=== PATIENT | female | born 1950 | race Caucasian/White ===

== ENCOUNTER 2022-05-12 05:01 | Observation (INO) ==
--- NOTE | 2022-04-24 15:22 | PAT Medication Instructions ---
Medication Instructions Date of Service April 24, 2022 Home Medications acetaminophen 500 mg tablet 500 mg PO QID PRN atorvastatin 40 mg tablet 40 mg PO QAM hydrochlorothiazide 25 mg tablet 25 mg PO QAM lansoprazole 30 mg capsule,delayed release 30 mg PO QAM levothyroxine 88 mcg tablet 88 mcg PO QAM magnesium oxide 250 mg PO QAM meloxicam 15 mg tablet 15 mg PO QAM xyzpfjyzysqd-amtxetxq-hfrnvj tablet 1 tab PO QAM potassium chloride 10 mEq tablet,extended release 10 meq PO BID sumatriptan succinate 100 mg tablet 100 mg PO UD PRN Continue as directed sumatriptan succinate 100 mg tablet 100 mg PO UD PRN(if needed) ASK your surgeon for instructions meloxicam 15 mg tablet 15 mg PO QAM DO NOT take the morning of surgery hydrochlorothiazide 25 mg tablet 25 mg PO QAM magnesium oxide 250 mg PO QAM kkaaihbaxvye-qcsxxlqj-ycmzlc tablet 1 tab PO QAM potassium chloride 10 mEq tablet,extended release 10 meq PO BID Take morning of surgery With a small sip of water, OTHERWISE NOTHING TO EAT OR DRINK AFTER MIDNIGHT: acetaminophen 500 mg tablet 500 mg PO QID PRN(if needed) atorvastatin 40 mg tablet 40 mg PO QAM lansoprazole 30 mg capsule,delayed release 30 mg PO QAM levothyroxine 88 mcg tablet 88 mcg PO QAM Take evening before surgery acetaminophen 500 mg tablet 500 mg PO QID PRN(if needed) potassium chloride 10 mEq tablet,extended release 10 meq PO BID Other Notes If you have any questions please call us at [phone] or [phone] or [phone] or [phone]
--- NOTE | 2022-04-28 10:31 | Anesthesiology Consultation ---
Date of Service April 28, 2022 Assessment & Plan (1) Encounter for pre-operative examination: - awaiting [facility] PCP clearance and echocardiogram. - grade 2/6 systolic murmur noted at PAT appt, none noted per [facility] PCP records. Patient advised will request echocardiogram prior to surgery for further evaluation and to aid anesthesia plan of neuraxial vs general anesthesia. Pt aware, denied questions or concerns. She reports PCP pre-op appt 04/29/22. Optimization form completed, to be faxed to PCP with completed PAT testing. Surgeon's office made aware. - Outpatient joint assessment: Pending echocardiogram and PCP clearance. Chart Review Chart Review: Pending: Refer to Additional Notes / Consult section and Patient seen in Pre Admission Testing Teaching & Discussion Pre-Anesthesia Teaching/Discussion Notes: Instructed NPO after midnight before surgery, except medications with 15 cc of water. Medication instructions provided according to the PAT guidelines. History Surgery Operation Date: 05/12/22 10:05 Proposed Procedures p Right Total Knee Arthroplasty - Leo Anne MD Height/Weight Height: 5 ft 2 in Weight: 82.2 kg Allergies Allergy/AdvReac Type Severity Reaction Status Date / Time Sulfa (Sulfonamide Allergy Mild Rash Verified 04/24/22 13:09 Antibiotics) simvastatin [From Zocor] Allergy Unknown Unknown Verified 04/24/22 13:09 sulfamethoxazole Allergy Unknown Unknown Verified 04/24/22 13:09 [From Bactrim] trimethoprim [From Bactrim] Allergy Unknown Unknown Verified 04/24/22 13:09 Medications Home Medications Medication Instructions Recorded Confirmed Last Taken acetaminophen 500 mg tablet 500 mg PO QID PRN Pain 04/24/22 04/24/22 Unknown atorvastatin 40 mg tablet 40 mg PO QAM 04/24/22 04/24/22 Unknown hydrochlorothiazide 25 mg tablet 25 mg PO QAM 04/24/22 04/24/22 Unknown lansoprazole 30 mg capsule,delayed 30 mg PO QAM 04/24/22 04/24/22 Unknown release levothyroxine 88 mcg tablet 88 mcg PO QAM 04/24/22 04/24/22 Unknown magnesium oxide 250 mg PO QAM 04/24/22 04/24/22 Unknown meloxicam 15 mg tablet 15 mg PO QAM 04/24/22 04/24/22 Unknown spsqswawnmfp-tqsdeaoe-xgnuup tablet 1 tab PO QAM 04/24/22 04/24/22 Unknown potassium chloride 10 mEq 10 meq PO BID 04/24/22 04/24/22 Unknown tablet,extended release sumatriptan succinate 100 mg tablet 100 mg PO UD PRN migraines 04/24/22 04/24/22 Unknown Past Medical History Medical History (Updated 04/28/22 @ 11:02 by Eryn Hathaway PA-C) Cardiac murmur 2/6 systolic murmur noted at 05/15 PAT exam, not noted at recent PCP visit GERD (gastroesophageal reflux disease) controlled, stable per pt History of COVID-19 11/2021 sore throat no hospitalization, no current issues History of trigger finger thumb Hyperlipidemia Hypertension controlled, stable per pt Hypothyroidism Migraine Prediabetes Sleep apnea cpap-compliant Patient denies h/o stroke, seizures, heart attack, heart failure, DM, blood clots or blood transfusions. Exercise / Class Metabolic Activity II 4-5 Yardwork/Stairs/Walk up hill (denies chest discomfort or shortness of breath with 1 FOS) Past Family History Family History Other No family history of adverse response to anesthesia Past Surgical History Surgical History History of open reduction and internal fixation (ORIF) procedure right wrist Hx of appendectomy Hx of arthroscopy of knee right meniscus Hx of carpal tunnel repair right Hx of colonoscopy Past Anesthesia History No Hx of Anesthesia Complications and No Family Hx of Anesthesia Complications History of PONV No Hx of PONV and No Hx of Motion Sickness Social History Smoking Status: Never smoker Do You Dip or Chew Tobacco: No Hx Alcohol Use: Yes alcohol intake frequency: holidays/special occasions only Hx Substance Use: No substance use type: does not use Review of Systems Patient denies chest pain, shortness of breath, dyspnea on exertion, fever, chills, cough, wheezing, dizziness, lightheadedness, presyncope or palpitations. Physical Exam Vital Signs Vitals BP 141/85 P 80 TEMP 98.2 SP02 98% on RA RESP 17 Physical Full cervical extension range of motion without pain TMD 3.5 finger breadths Mallampati Score 2 Dentition: one crown; denies chipped or loose teeth, implants or bridges Lungs: normal respiratory effort. Clear throughout to auscultation, no adventitious breath sounds Cardiac: regular rate and rhythm, 2/6 systolic murmur noted Carotid arteries: negative bruit bilat Lab Results Anesthesia Preop Results Results Anesthesia Widget: WBC 5.88 K/ul (4.8-10.8) 04/28/22 Hgb 14.4 g/dl (12.0-16.0) 04/28/22 Hct 41.6 % (37.0-47.0) 04/28/22 Plt 206 K/uL (130-400) 04/28/22 Na 142 mmol/L (136-145) 04/28/22 K 3.7 mmol/L (3.5-5.1) 04/28/22 Cl 107 mmol/L (98-107) 04/28/22 CO2 28 mmol/L (21-32) 04/28/22 BUN 21 mg/dl (6-23) 04/28/22 Creat 0.99 mg/dl (0.6-1.2) 04/28/22 Glucose Level 107 mg/dl (70-99(Fasting)) H 04/28/22 PT 10.7 Seconds (9.0-12.0) 04/28/22 PTT 26.5 Seconds (21.0-31.0) 04/28/22 INR 1.0 (0.9-1.1) 04/28/22 HA1c 5.9 % (4.5-5.6) H 04/28/22 Urine Color Yellow 04/28/22 Urine Appearance Clear (Clear) 04/28/22 Urine pH 5.5 (4.5-7.5) 04/28/22 Urine Specific [place] 1.015 (1.000-1.030) 04/28/22 Urine Protein Negative (Negative) 04/28/22 Urine Glucose (UA) Negative (Negative) 04/28/22 Urine Ketones Negative (Negative) 04/28/22 Urine Blood Negative (Negative) 04/28/22 Urine Nitrite Negative (Negative) 04/28/22 Urine Bilirubin Negative (Negative) 04/28/22 Urine Urobilinogen Negative (Negative) 04/28/22 Urine Leukocyte Esterase Negative (Negative) 04/28/22 Blood Type A Positive 04/28/22 Antibody Screen NEGATIVE 04/28/22 Testing Electrocardiogram Date: 04/28/22 NSR, rate 68 bpm Chest X-Ray Date: 04/28/22 Round calcifications in the upper abdomen. Mild hyperinflation. The cardiomediastinal and hilar silhouettes are within normal limits. No pneumothorax, pleural effusion, airspace consolidation or overt pulmonary edema. Degenerative changes of the shoulders and spine. IMPRESSION: 1. No acute processes of the chest. 2. Probable cholelithiasis. COVID-19 Risk Screen Screening Information COVID-19 Screen Date: 04/28/22 Exposure 21 Days Family/Household +COVID Last 21 Days: No Exposure 10 Days Any COVID Exposure Last 10 Days: No Symptoms Last 10 Days Experienced COVID Sx Last 10 Days: No + COVID 0-90 Days COVID + in Last 0-90 Days: No
--- NOTE | 2022-05-11 09:56 | History & Physical Report ---
Date of Service May 11, 2022 Assessment & Plan (1) Primary osteoarthritis of right knee: Plan: Treatment options discussed with the patient. She has failed conservative measures and would like to proceed with surgical intervention. Risks, benefits and alternatives to surgery including but not limited to infection, DVT, pain, stiffness, need for revision surgery, damage to blood vessels, damage to nerves, PE, , were discussed with the patient and they wish to proceed. Plan for right total knee arthroplasty scheduled for May 12 at [facility] with Dr. Anne. Plan on outpatient physical therapy postop. We will plan on aspirin 80 mg twice daily for 1 month postop for DVT prophylaxis. All questions answered. Patient will follow postop. History of Present Illness Chief Complaint: Right knee pain Primary Care Provider: Ava Chamberlain PA-C 71-year-old female with past medical history significant for hypertension, high cholesterol, GERD, sleep apnea hypothyroidism, migraine who presents with ongoing right knee pain. Pain is interfering with her daily activities. She has failed conservative measures including anti-inflammatories, injections, exercise. She would like to proceed with surgical intervention. Patient denies headaches, sweats, fevers, chills, double vision, blurred vision, cough, sore throat, dysphagia, chest pain, sob, wheezing, n/v/d/c, numbness, tingling, fatigue, urinary symptoms, mood disorders. ROS positive for [] pain and stiffness. Allergies Allergy/AdvReac Type Severity Reaction Status Date / Time Sulfa (Sulfonamide Allergy Mild Rash Verified 04/24/22 13:09 Antibiotics) simvastatin [From Zocor] Allergy Unknown Unknown Verified 04/24/22 13:09 sulfamethoxazole Allergy Unknown Unknown Verified 04/24/22 13:09 [From Bactrim] trimethoprim [From Bactrim] Allergy Unknown Unknown Verified 04/24/22 13:09 Home Medications Medication Instructions Recorded Confirmed Type acetaminophen 500 mg tablet 500 mg PO QID PRN Pain 04/24/22 04/24/22 History atorvastatin 40 mg tablet 40 mg PO QAM 04/24/22 04/24/22 History hydrochlorothiazide 25 mg tablet 25 mg PO QAM 04/24/22 04/24/22 History lansoprazole 30 mg capsule,delayed 30 mg PO QAM 04/24/22 04/24/22 History release levothyroxine 88 mcg tablet 88 mcg PO QAM 04/24/22 04/24/22 History magnesium oxide 250 mg PO QAM 04/24/22 04/24/22 History meloxicam 15 mg tablet 15 mg PO QAM 04/24/22 04/24/22 History tdcsnoyjupum-lgnlbxkr-cerzis tablet 1 tab PO QAM 04/24/22 04/24/22 History potassium chloride 10 mEq 10 meq PO BID 04/24/22 04/24/22 History tablet,extended release sumatriptan succinate 100 mg tablet 100 mg PO UD PRN migraines 04/24/22 04/24/22 History Past Med/Surg History Medical History (Updated 05/11/22 @ 09:55 by Preston Oliva PA-C) Cardiac murmur 04/28 systolic murmur noted at 05/15 PAT exam, not noted at recent PCP visit GERD (gastroesophageal reflux disease) controlled, stable per pt History of COVID-19 11/2021 sore throat no hospitalization, no current issues History of trigger finger thumb Hyperlipidemia Hypertension controlled, stable per pt Hypothyroidism Migraine Prediabetes Sleep apnea cpap-compliant Surgical History History of open reduction and internal fixation (ORIF) procedure right wrist Hx of appendectomy Hx of arthroscopy of knee right meniscus Hx of carpal tunnel repair right Hx of colonoscopy Family History Other No family history of adverse response to anesthesia Social History Smoking Status: Never smoker Second Hand Exposure: No; Hx Alcohol Use: Yes Hx Substance Use: No Preferred Language: Yoruba Communication Ability: Effective 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 Beliefs That Will Affect Care: None Current Living Situation: Spouse Feels Safe at Home: Yes Assistive Devices: CPAP and Glasses Review of Systems All systems reviewed & are unremarkable except as noted in HPI & below Physical Exam Constitutional: well developed and well nourished; no acute distress Eyes: PERRL, conjunctivae normal, anicteric sclerae ENMT: external ear and nose normal, oropharynx normal Neck: trachea midline, no thyromegaly Respiratory: normal respiratory effort, lungs clear to auscultation Cardiovascular: Rate/Rhythm: regular rate and regular rhythm Heart Sounds: + murmur (II/ systolic murmur) Extremities: no edema Musculoskeletal: Right knee: Varus alignment. Mild effusion. There is severe crepitation with range of motion. Guarded Oziel's. Stable to valgus and varus stress test. Range of motion 0 to 120 degrees. Skin: no rashes, warm and dry Neurologic: patellar DTR's 2+ bilat, sensation intact Psychiatric: A+Ox3, euthymic affect Results & Data ([place]) Diagnostic Findings Right knee radiographs demonstrate tricompartmental osteoarthritis. There is moderate joint space narrowing medial compartment. She is zbop-sj-ktfp lateral patellofemoral compartment. There is periarticular osteophyte formation.
[2022-05-12] MEDS ORDERED: FAMOTIDINE 20 MG TAB PO SCH (06:00)
[2022-05-12] MEDS ORDERED: dexAMETHasone 4 MG TAB PO SCH (06:00)
[2022-05-12] MEDS ORDERED: METOCLOPRAMIDE HCL 10 MG TABLET PO SCH (06:00)
[2022-05-12] MEDS ORDERED: ACETAMINOPHEN 500 MG TAB PO SCH (06:00)
[2022-05-12] MEDS ORDERED: ceFAZolin 2000MG 2,000 MG/15 ML SYR IV SCH (06:00)
[2022-05-12] MEDS ORDERED: LR 500ML BOLUS, THEN 15ML/HR IV SCH (06:00)
[2022-05-12] MEDS ORDERED: TRANEXAMIC ACID 1,000 MG **IV Intra-op IV SCH (06:00)
[2022-05-12] MEDS ORDERED: TRANEXAMIC ACID 1,000 MG **IV Pre-op IV SCH (06:00)
[2022-05-12] MEDS ORDERED: GABAPENTIN 300 MG CAP PO SCH (06:00)
[2022-05-12] MEDS ORDERED: ROPIVACAINE 0.5% HCL/PF 150 MG, BUPIVACAINE 0.75% MPF 20 ML, EPINEPHrine 30MG/30ML (OR ... INFIL SCH (06:00)
[2022-05-12] MEDS ORDERED: ROPIVACAINE 0.5% 5 MG/ML 30 ML VIAL ONE (06:16)
[2022-05-12] MEDS ORDERED: ONDANSETRON INJ 2 MG/ML 2 ML VIAL ONE (06:38)
[2022-05-12] MEDS ORDERED: LIDOCAINE 2% MPF LOCAL 5 ML VIAL INFIL ONE (06:38)
[2022-05-12] MEDS ORDERED: PROPOFOL IV EMULSION 10 MG/ML 20 ML VIAL IV ONE (06:38)
[2022-05-12] MEDS ORDERED: MIDAZOLAM HCL 1 MG/ML 2ML VIAL ONE ×2 (06:38)
[2022-05-12] MEDS ORDERED: KETOROLAC 30 MG/ML VIAL IV PRN (06:58)
[2022-05-12] MEDS ORDERED: ePHEDrine sulfate 50 MG/ML AMP IV PRN (06:58)
[2022-05-12] MEDS ORDERED: ATROPINE SULFATE 0.1 MG/ML 10ML SYR IV PRN (06:58)
[2022-05-12] MEDS ORDERED: fentaNYL citrate 100 MCG/2 ML VIAL IV PRN (06:58)
[2022-05-12] MEDS ORDERED: ONDANSETRON INJ 2 MG/ML 2 ML VIAL IV PRN ×2 (06:58→11:02)
[2022-05-12] MEDS ORDERED: ORTHO JOINT ANESTHETIC ONE (07:06)
--- NOTE | 2022-05-12 07:09 | History & Physical Bridge Note ---
Date of Service May 12, 2022 History & Physical Bridge Note I have examined the patient, reviewed the History & Physical and in the interval since the performance of the History & Physical I have noted the following changes of clinical significance: no changes noted
[2022-05-12] MEDS ORDERED: ePHEDrine sulfate 50 MG/ML SYR ONE (07:52)
--- NOTE | 2022-05-12 09:04 | Operative Report ---
Post Operative Report Pre & Post Diagnosis Operation Date: 05/12/22 07:15 Pre-Op Diagnosis: Right Knee Osteoarthritis, patellofemoral malalignment Post-Op Diagnosis: Right Knee Osteoarthritis, patellofemoral malalignment I identified the patient and participated in the time-out.: Yes Procedure Operation Date: 05/12/22 07:15 Actual Procedures p Right Total Knee Arthroplasty(Right), lateral release, neel and Acticoat superficial wound VAC- Leo Anne MD Surgeon Leo Anne MD Pharmacy Analyst Saurabh BROOKS Estimated Blood Loss 5 Findings Consistent with Post-Op Diagnosis Specimens Bone cuts Drains 2 Hemovac Anesthesia Type MAC Spinal Regional Complications None Disposition Disposition: Recovery Room Indications 71-year female with progressive osteoarthritis in her right knee. Radiographs demonstrate she has primarily patellofemoral osteoarthritis with tricompartmental findings. She has patellofemoral malalignment with lateral tracking patella and txgo-sv-[id number] in the patellofemoral joint Description of Procedure Patient was taken to the operating room placed supine on the operating table and anesthetized under spinal MAC regional block anesthesia. Exam under anesthesia demonstrated good range of motion no instability small effusion and lateral tracking patella with isse-jr-eejj patellofemoral joint. A pneumatic tourniquet was placed about the thigh of the right lower extremity. The right lower extremity was prepped and draped in usual sterile fashion. The leg was elevated exsanguinated with an Esmarch bandage and the pneumatic tourniquet was raised to 325 mm mercury. An anterior incision was made across the right knee. The skin was incised longitudinally subcutaneous flaps were elevated and an incision was made through the medial retinaculum extending up into the mid third of the quadriceps tendon and extended down to the medial tibial tubercle. Intra-articular findings demonstrated tricompartmental osteoarthritis grade 4 chondral lesion medial femoral condyle with grade 4 patellofemoral OA with knee eburnated bone and ridging with a lateral tracking patella. The knee was exposed by excising the infrapatellar fat pad, excising the meniscal remnants and anterior cruciate ligament. Any inflamed synovial tissue was resected. The fat pad over the anterior femur was resected for placement of the component in that area. The lateral synovial bands were release. The femur was exposed. The custom femoral cutting block was pinned in position. The distal femoral cutting block was applied. The distal femoral cut was made with the oscillating saw. The size 6, 4-in-1 cutting block was placed. The anterior and posterior chamfer cuts were made. The knee was extended and a subperiosteal peel lateral release was performed around the patella. The patella width was measured and width was reproduced using freehand cut technique. The 29 millimeter s ymmetrical patella was used. We adjusted the patella placement to the medial side to help patellar tracking. 3 drill holes are made for the pegs. The excess lateral facet of the patella was beveled off to prevent any impingement. The tibia was exposed. A custom tibial cutting block was positioned and drill holes were made for the cutting guide. Cutting guide was placed and the proximal cut was made with the oscillating saw. All osteophytes were resected. The lamina associate director career services was used to assess ligamentous balance and the ligaments were balanced in extension and flexion. The tibia was reexposed and measured for a size C tibial component. This was externally rotated in line with the tibial tubercle and the fixation pins were drilled. The proximal tibia was fashioned with the drill and punch. The size 6 CR femoral trial was inserted. The trial MC inserts were used. The 10 mm insert gave balanced ligaments through full range of motion. The patella tracked with lateral tilt so I had to do a lateral release which was performed leaving the synovium intact. This corrected the patella tracking to central. the trials were removed. The orthomix anesthetic cocktail was injected per protocol. The knee was then copiously irrigated with pulsatile lavage saline solution. The final components were cemented with Refobacin bone cement. The final components were 6 narrow CR right [employer] persona femoral component, C right tibial component, 10 MC right tibial polyethylene, 29 symmetrical patella. After the cement cured with the knee in full extension the Betadine soak was used per protocol. The knee joint was copiously irrigated with pulsatile lavage saline solution . 2 drains were brought out laterally and connected to a Hemovac. The quadriceps tendon and medial retinaculum were closed with interrupted osqipt-mo-[id number] #1 Vicryl sutures. The knee was taken through a full range of motion and repair was secure. The subcutaneous tissues were closed with 2-0 Vicryl sutures and skin was closed with lewis. Sterile dressings were applied and the patient tolerated the procedure well. Saurabh BROOKS my physician assistant project manager, participated as first coat sander and was integral part in all aspects the procedure, he assisted in soft tissue retraction, instrument management ,leg positioning, the closure application superficial wound VAC and will participate in the postoperative care of the patient. I attest to the content of the Intraoperative Record and any orders documented therein. Any exceptions are noted below.
--- NOTE | 2022-05-12 10:18 | XRay Report ---
XR knee RT 1 or 2V routine CLINICAL HISTORY: Surgical Post Op TECHNIQUE: 2 views of the right knee were obtained. Comparison: None available at the time of this dictation. FINDINGS: Patient is status post total knee arthroplasty with expected postsurgical changes including soft tiss ue swelling and subcutaneous emphysema. No periarticular lucency or hardware fracture is seen. IMPRESSION: Expected postoperative appearance status post placement of total knee arthroplasty. ACT 112: Negative or not required by law. Electronically signed by: Jordan Gan M.D. 05/12/2022 10:16 AM
[2022-05-12] MEDS ORDERED: bisacodyL 10 MG SUPP PR PRN (11:02)
[2022-05-12] MEDS ORDERED: NALOXONE HCL 0.4 MG/1 ML VIAL/CARP IV PRN (11:02)
[2022-05-12] MEDS ORDERED: MAGNESIUM HYDROXIDE SUSP 30 ML UDC PO PRN (11:02)
[2022-05-12] MEDS ORDERED: HYDROmorphone INJ 0.5 MG/0.5 ML SYR IV PRN (11:02)
[2022-05-12] MEDS ORDERED: METOCLOPRAMIDE HCL INJ 5 MG/ML 2 ML VIAL IV PRN (11:02)
[2022-05-12] MEDS ORDERED: SUMAtriptan succinate 100 MG TAB PO PRN (11:02)
[2022-05-12] MEDS: SODIUM CHLORIDE 0.9% 1000ML 1,000 ML IV SCH ×2 (11:24→22:39)
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
--- NOTE | 2022-05-12 12:14 | Anesthesiology Progress Note ---
Date of Service May 12, 2022 Anesthesia Post Procedure Vital Signs Vital Signs: Temp Pulse Pulse Resp BP BP Pulse Ox 05/12/22 11:59 36.4 C L 68 16 124/65 99 05/12/22 11:25 36.5 C 74 16 115/70 96 05/12/22 10:55 36.4 C L 80 16 124/73 97 05/12/22 10:05 75 21 131/58 L 94 05/12/22 10:35 36.8 C 64 14 103/63 97 05/12/22 10:25 66 18 124/57 L 96 05/12/22 10:15 67 17 124/64 94 05/12/22 09:55 83 12 116/66 99 05/12/22 09:45 36.4 C L 68 18 113/49 L 97 05/12/22 05:58 37 C 78 20 170/78 H 98 O2 Del Method O2 Flow Rate 05/12/22 11:59 Room Air 05/12/22 11:25 Room Air 05/12/22 10:55 Room Air 05/12/22 10:05 Room Air 05/12/22 10:35 Room Air 05/12/22 10:25 Room Air 05/12/22 10:15 Room Air 05/12/22 09:55 Room Air 05/12/22 09:45 Oxymask 5 05/12/22 05:58 Room Air Transfer of Care Handoff Completed per policy Notes Mental Status: alert / awake / arousable Patient Amnestic to Procedure: Yes Nausea / Vomiting: adequately controlled Pain: adequately controlled Airway Patency, RR, SpO2: stable & adequate BP & HR: stable & adequate Hydration State: stable & adequate Neuraxial Anesthesia: was administered and sensory block is resolving Anesthetic Complications: no major complications apparent
[2022-05-12] MEDS: ACETAMINOPHEN 500 MG TAB PO SCH ×2 (15:12→20:16)
[2022-05-12] MEDS: ceFAZolin 2000MG 2,000 MG/15 ML SYR IV SCH ×2 (15:13→22:13)
[2022-05-12] MEDS: oxyCODONE HCL IR 5 MG TAB (IMMEDIATE RELEASE) PO PRN (18:37)
[2022-05-12] MEDS: DOCUSATE SODIUM 100 MG CAP PO SCH (20:16)
[2022-05-12] MEDS: ASPIRIN 81 MG ECTAB PO SCH (20:16)
[2022-05-12] MEDS: POTASSIUM CHLORIDE 10 MEQ TABCR PO SCH (20:16)
[2022-05-12] MEDS ORDERED: SENNA 8.6 MG TAB PO SCH (21:00)
[2022-05-13] MEDS: ACETAMINOPHEN 500 MG TAB PO SCH (05:41)
[2022-05-13 06:09] LABS: Hemoglobin 12.1 g/dl (12.0-16.0); Mean Corpuscular Hemoglobin 31.1 pg (25.0-34.0); Mean Corpuscular Hgb Conc 34.6 g/dL (32.0-36.0); Mean Platelet Volume 10.8 fL (9.4-12.4); Platelet Count 186 K/uL (130-400); RDW Coefficient of Variation 12.4 % (11.5-14.5); RDW Standard Deviation 40.6 fL (36.4-46.3); Red Blood Count 3.89 M/uL (4.20-5.40); White Blood Count 15.65 K/ul (4.8-10.8)
[2022-05-13 06:34] LABS: BUN Creatinine Ratio 29.7 (10-20); Calcium 8.7 mg/dl (8.5-10.1); Creatinine Clr Calc Pharmacy 55.6 ml/min; Est GFR (African American) 73.6 ml/min; Est GFR (Non-African American) 63.5 ml/min; Potassium 3.6 mmol/L (3.5-5.1)
--- NOTE | 2022-05-13 07:43 | Orthopedic Progress Note ---
Date of Service May 13, 2022 Assessment & Plan (1) History of total right knee replacement: Plan: POD #1 s/p Right TKA pt/ot dvt proph with MARICHUY/SCD/ASA plan for d/c home with HHPT Admission and Anticipated Discharge Date Admission Date: May 12, 2022 Subjective POD #1 s/p Right TKA Review of Systems Constitutional: no fever, no chills and no sweats Respiratory: no cough and no dyspnea Cardiovascular: no chest pain and no dyspnea Gastrointestinal: no abdominal pain, no nausea and no vomiting Physical Exam Physical Exam: Vital Signs Temp 36.7 C 05/13/22 07:30 Pulse 65 05/13/22 07:30 Resp 16 05/13/22 07:30 BP 128/71 05/13/22 07:30 Pulse Ox 98 05/13/22 07:30 O2 Del Method Room Air 05/13/22 07:30 O2 Flow Rate 5 05/12/22 09:45 Intake & Output 05/12/22 05/13/22 05/13/22 18:59 06:59 18:59 Intake Total 1600 / 2600 1000 / 2600 Output Total 85 / 310 225 / 310 Balance 1515 / 2290 775 / 2290 Intake: IV 200 / 1200 1000 / 1200 Lactated Ringe r's 1,000 ml @ 15 0 / 0 mls/hr IV .Q24 H SKYL[facility] Rx#: [id number] Sodium Chlorid e 0.9% 1000ML 1, 1000 / 1000 000 ml @ 100 m ls/hr IV .Q10H [facility] Rx#:[id number] Tranexamic Aci d / 0.7% NaCl 1, 200 / 200 000 mg In 100 ml @ 600 mls/hr IV TODAY@0600 [facility] Rx#:[id number] IV Perioperative 1400 / 1400 Output: Estimated Blood Loss 5 / 5 Drain Output 80 / 305 225 / 305 Right Knee 80 / 305 225 / 305 Other: # Unmeasured Voi ds 1 Musculoskeletal: Right Leg: NVDI, calf SNT, negative renita sign. DP palpable, able to wiggle toes/ankle movement without difficulty. dressing clean dry and intact. Results & Data ([facility]) Vital Signs (Past 12 Hours) Vital Signs Temp Pulse Resp BP Pulse Ox O2 Del Method 05/13/22 07:30 36.7 C 65 16 128/71 98 Room Air 05/13/22 03:14 36.8 C 85 16 124/69 94 Room Air 05/12/22 20:15 Room Air, CPAP 05/12/22 22:10 36.7 C 67 16 132/70 96 Room Air Laboratory Results Laboratory Results WBC 15.65 K/ul (4.8-10.8) H 05/13/22 05:24 RBC 3.89 M/uL (4.20-5.40) L 05/13/22 05:24 Hgb 12.1 g/dl (12.0-16.0) 05/13/22 05:24 Hct 35.0 % (37.0-47.0) L 05/13/22 05:24 MCV 90.0 fL (80.0-100.0) 05/13/22 05:24 MCH 31.1 pg (25.0-34.0) 05/13/22 05:24 MCHC 34.6 g/dL (32.0-36.0) 05/13/22 05:24 RDW Std Deviation 40.6 fL (36.4-46.3) 05/13/22 05:24 RDW Coeff of Renetta 12.4 % (11.5-14.5) 05/13/22 05:24 Plt Count 186 K/uL (130-400) 05/13/22 05:24 MPV 10.8 fL (9.4-12.4) 05/13/22 05:24 Sodium 142 mmol/L (136-145) 05/13/22 05:24 Potassium 3.6 mmol/L (3.5-5.1) 05/13/22 05:24 Chloride 111 mmol/L (98-107) H 05/13/22 05:24 Carbon Dioxide 25 mmol/L (21-32) 05/13/22 05:24 Anion Gap 6 (3-11) 05/13/22 05:24 BUN 27 mg/dl (6-23) H 05/13/22 05:24 Creatinine 0.91 mg/dl (0.6-1.2) 05/13/22 05:24 Est Cr Clr Drug Dosing 55.6 ml/min 05/13/22 05:24 Est GFR ( Amer) 73.6 ml/min 05/13/22 05:24 Est GFR (Non-Af Amer) 63.5 ml/min 05/13/22 05:24 BUN/Creatinine Ratio 29.7 (10-20) H 05/13/22 05:24 Glucose 119 mg/dl (70-99(Fasting)) H 05/13/22 05:24 Calcium 8.7 mg/dl (8.5-10.1) 05/13/22 05:24 SARS-CoV-2, RNA, NAAT NEGATIVE (NEGATIVE) 05/12/22 Unknown Impressions Knee X-Ray 05/12/22 09:47 XR knee RT 1 or 2V routine CLINICAL HISTORY: Surgical Post Op TECHNIQUE: 2 views of the right knee were obtained. Comparison: None available at the time of this dictation. FINDINGS: Patient is status post total knee arthroplasty with expected postsurgical changes including soft tissue swelling and subcutaneous emphysema. No periarticular lucency or hardware fracture is seen. IMPRESSION: Expected postoperative appearance status post placement of total knee arthroplasty. ACT 112: Negative or not required by law. Electronically signed by: Jordan Gan M.D. 05/12/2022 10:16 AM
[2022-05-13] MEDS: DOCUSATE SODIUM 100 MG CAP PO SCH (08:05)
[2022-05-13] MEDS: ASPIRIN 81 MG ECTAB PO SCH (08:05)
[2022-05-13] MEDS: POTASSIUM CHLORIDE 10 MEQ TABCR PO SCH (08:05)
[2022-05-13] MEDS ORDERED: MELOXICAM 7.5 MG TAB PO SCH (09:00)
[2022-05-13] MEDS ORDERED: MULTIVITAMIN TAB PO SCH (09:00)
[2022-05-13] MEDS ORDERED: hydroCHLOROthiazide 25 MG TAB PO SCH (09:00)
[2022-05-13] MEDS ORDERED: MAGNESIUM OXIDE 400 MG TAB PO SCH (09:00)
[2022-05-13] MEDS ORDERED: CEROVITE ADV FORMULA TAB PO SCH (09:00)
[2022-05-13] MEDS ORDERED: ATORVASTATIN 40 MG TAB PO SCH (09:00)
[2022-05-13] MEDS ORDERED: LEVOTHYROXINE SODIUM 88 MCG TABLET PO SCH (09:00)
[2022-05-13] MEDS ORDERED: PANTOprazole 40 MG TAB PO SCH (09:00)
[2022-05-13] MEDS: oxyCODONE HCL IR 5 MG TAB (IMMEDIATE RELEASE) PO PRN (11:43)
--- NOTE | 2022-05-13 11:45 | Hospitalist Progress Note ---
Date of Service May 13, 2022 Assessment & Plan (1) Primary osteoarthritis of right knee: Plan: POD #1 - Right TKR - Pain control, DVT prophylaxis, PT/OT per primary service - Encourage incentive spirometry - Labs in AM (2) Sleep apnea: Plan: Pt brought own CPAP from home - placed order for pt to use own machine (3) Prediabetes: Plan: Currently diet controlled (4) Hypertension: Plan: BP currently well-controlled - continue home meds (5) Hypothyroidism: Plan: Continue levothyroxine (6) Hyperlipidemia: Plan: Continue statin (7) GERD (gastroesophageal reflux disease): Plan: Continue PPI Admission and Anticipated Discharge Date Admission Date: May 12, 2022 Subjective POD #1 s/p Right TKA, pt reports pain under control, reports eating ok, no new complaints. Physical Exam Physical Exam: GENERAL: Alert and oriented x3. NAD, on RA. Obese class I. HEENT: No pallor, no icterus. Pupils equal, round and reactive to light. Oral mucosa moist. NECK: No JVD, no neck masses. HEART: S1 and S2 heard. Regular rate and rhythm. No murmur, no gallop. RESPIRATORY SYSTEM: Normal AP diameter. No accessory muscle use. No wheezing, no crackles. ABDOMEN: Soft, bowel sounds present, nontender, no distention. CENTRAL NERVOUS SYSTEM: No facial droop. Speech is clear. Obeys simple commands. Moves extremities. EXTREMITIES: No edema, no erythema seen. Right knee dressing without soakage, Hemovac with minimal serosanguineous collection noted. Results & Data Results & Data ([facility]) Vital Signs (Past 12 Hours) Vital Signs Temp Pulse Pulse Resp BP BP Pulse Ox 05/13/22 11:06 36.7 C 64 65 16 128/71 170/78 H 98 05/13/22 07:30 05/13/22 07:30 36.7 C 65 16 128/71 98 05/13/22 03:14 36.8 C 85 16 124/69 94 O2 Del Method 05/13/22 11:06 05/13/22 07:30 CPAP 05/13/22 07:30 Room Air 05/13/22 03:14 Room Air
--- NOTE | 2022-05-14 05:24 | Discharge Summary ---
Date of Service May 14, 2022 Admission HPI Per Admitting Provider 71-year-old female with past medical history significant for hypertension, high cholesterol, GERD, sleep apnea hypothyroidism, migraine who presents with ongoing right knee pain. Pain is interfering with her daily activities. She has failed conservative measures including anti-inflammatories, injections, exercise. She would like to proceed with surgical intervention. Patient denies headaches, sweats, fevers, chills, double vision, blurred vision, cough, sore throat, dysphagia, chest pain, sob, wheezing, n/v/d/c, numbness, tingling, fatigue, urinary symptoms, mood disorders. ROS positive for [] pain and st iffness. Admission Exam Per Admitting Provider Constitutional: well developed and well nourished; no acute distress Eyes: PERRL, conjunctivae normal, anicteric sclerae ENMT: external ear and nose normal, oropharynx normal Neck: trachea midline, no thyromegaly Respiratory: normal respiratory effort, lungs clear to auscultation Cardiovascular: Rate/Rhythm: regular rate and regular rhythm Heart Sounds: + murmur (II/ systolic murmur) Extremities: no edema Musculoskeletal: Right knee: Varus alignment. Mild effusion. There is severe crepitation with range of motion. Guarded Oziel's. Stable to valgus and varus stress test. Range of motion 0 to 120 degrees. Skin: no rashes, warm and dry Neurologic: patellar DTR's 2+ bilat, sensation intact Psychiatric: A+Ox3, euthymic affect Principal Diagnosis Right knee osteoarthritis Discharge Exam Vital Signs Temp 36.7 C 05/13/22 07:30 Pulse 65 05/13/22 07:30 Resp 16 05/13/22 07:30 BP 128/71 05/13/22 07:30 Pulse Ox 98 05/13/22 07:30 O2 Del Method Room Air 05/13/22 07:30 O2 Flow Rate 5 05/12/22 09:45 Intake & Output 05/12/22 05/13/22 05/13/22 18:59 06:59 18:59Intake Total 1600 / 2600 1000 / 2600 Output Total 85 / 310 225 / 310 Balance 1515 / 2290 775 / 2290 Intake: IV 200 / 1200 1000 / 1200 Lactated Ringe r's 1,000 ml @ 15 0 / 0 mls/hr IV .Q24 H SKYLER Rx#: [id number] Sodium Chlorid e 0.9% 1000ML 1, 1000 / 1000 000 ml @ 100 m ls/hr IV .Q10H SKYLER Rx#:[id number] Tranexamic Aci d / 0.7% NaCl 1, 200 / 200 000 mg In 100 ml @ 600 mls/hr IV TODAY@0600 SKYLER Rx#:[id number] IV Perioperative 1400 / 1400 Output: Estimated Blood Loss 5 / 5 Drain Output 80 / 305 225 / 305 Right Knee 80 / 305 225 / 305 Other: # Unmeasured Voi ds 1 Musculoskeletal: Right Leg: NVDI, calf SNT, negative renita sign. DP palpable, able to wiggle toes/ankle movement without difficulty. dressing clean dry and intact. Discharge Data Allergies Allergy/AdvReac Type Severity Reaction Status Date / Time Sulfa (Sulfonamide Allergy Mild Rash Verified 05/12/22 05:30 Antibiotics) simvastatin [From Zocor] Allergy Unknown Unknown Verified 05/12/22 05:30 sulfamethoxazole Allergy Unknown Unknown Verified 05/12/22 05:30 [From Bactrim] trimethoprim [From Bactrim] Allergy Unknown Unknown Verified 05/12/22 05:30 Consultations 05/07/22 11:02 Consult Hospitalist Routine Procedures Performed Operation Date: 05/12/22 07:15 Actual Procedures p Right Total Knee Arthroplasty(Right) - Leo Anne MD Ordered Studies 05/12/22 05:00 US - OR guided needle placemen Routine Hospital Course (1) History of total right knee replacement: POD #1 s/p Right TKA pt/ot dvt proph with MARICHUY/SCD/ASA plan for d/c home with HHPT Lab Results 05/12/22 05/13/22 05/13/22 Range/Units Unknown 05:24 05:24 WBC 15.65 H (4.8-10.8) K/ul RBC 3.89 L (4.20-5.40) M/uL Hgb 12.1 (12.0-16.0) g/dl Hct 35.0 L (37.0-47.0) % MCV 90.0 (80.0-100.0) fL MCH 31.1 (25.0-34.0) pg MCHC 34.6 (32.0-36.0) g/dL RDW Std Deviation 40.6 (36.4-46.3) fL RDW Coeff of Renetta 12.4 (11.5-14.5) % Plt Count 186 (130-400) K/uL MPV 10.8 (9.4-12.4) fL Sodium 142 (136-145) mmol/L Potassium 3.6 (3.5-5.1) mmol/L Chloride 111 H (98-107) mmol/L Carbon Dioxide 25 (21-32) mmol/L Anion Gap 6 (3-11) BUN 27 H (6-23) mg/dl Creatinine 0.91 (0.6-1.2) mg/dl Est Cr Clr Drug Dosing 55.6 ml/min Est GFR ( Amer) 73.6 ml/min Est GFR (Non-Af Amer) 63.5 ml/min BUN/Creatinine Ratio 29.7 H (10-20) Glucose 119 H (70-99(Fasting)) mg/dl Calcium 8.7 (8.5-10.1) mg/dl SARS-CoV-2, RNA, NAAT NEGATIVE (NEGATIVE) Total Time Total Time Spent Total Time Spent (In Minutes): 20 Discharge Plan Discharge Items Patient Disposition: Home - Home Health Services Reason For Visit: Right Knee Osteoarthritis Discharge Diagnosis: Right Knee Osteoarthritis Activity: Per Instructions section Weightbearing: Right weightbearing Weightbearing Comment: as tolerated with walker Non-emergency contact: Surgeon Call non-emergency contact if: you have any medication questions, your pain is not controlled, your temperature is above 101.5, your wound has increased redness and your wound has increased drainage Follow-up/Referrals: Ava Chamberlain PA-C [Primary Care Provider] - Leo Anne MD [Surgeon] - (Follow up with Dr Anne or his PA in 2 weeks from the day of your surgery for your first post operative visit. ) Diet: Regular Addtl Attending Provider Instructions: ACTIVITY RECOMMENDATIONS: SELF CARE INSTRUCTIONS AFTER TOTAL KNEE REPLACEMENT A. You may need to continue a physical therapy program after discharge from the hospital. There are several options available to you. Your doctor will assist you in selecting the best one for you. 1. An out-patient facility 2 to 3 times a week for therapy or home therapy. 2. Continue working on all exercises taught to you in the hospital. Your goals should be to increase bending of your knee to 90 degrees and beyond and to fully straighten your knee. B. You may progress at your own pace from walking with a walker or crutches to a cane; then to no assistive devices. C. Make walking a part of your daily routine. Be up as much as comfortable with rest periods throughout the day. Rest with leg elevation is very important. Use the ice wrap frequently for the first 3-4 weeks. D. There are no restrictions on activities. You may ride in a car, shop, participate in rn renal and all social activities. E. Wear the long elastic stockings (MARICHUY hose) 20 hours a day for 2 weeks after surgery. They can be removed several times a day for laundering and for a bath. F. You may shower, no tub baths until cleared by your doctor. SPECIAL CARE INSTRUCTIONS: VERY IMPORTANT TO READ AND REVIEW A. There are a few signs you need to watch for after you are home. Call [facility] [place] if you notice any of the followin. Increased severe knee pain. Some pain is expected especially when you exercise. 2. Increased swelling in your leg or knee; pain or swelling of the calf muscle in either lower leg. 3. Any fluid drainage from the incision. 4. Shortness of breath or chest pain. B. Please call [facility] at if you have any concerns or questions about your operation or recovery. The doctor or his nurse will return your call promptly. C. You must take antibiotics before dental work, bladder, bowel or other surgery. Your doctor will provide you with a permanent care to carry describing this precaution. IMPORTANT: * REMEMBER TO TAKE YOUR ELIQUIS AND ASPIRIN ORDERED. . * CALL IF INCREASED PAIN, REDNESS, DRAINAGE OR FEVER GREATER THAT 101. * WEAR MARICHUY HOSE 20 HOURS PER DAY FOR 2 WEEKS. * DERICK Dressing - This is a large suction dressing covering your incision. This will help pull any excess drainage from the wound and allow your incision to heal properly. You may shower with this if you can keep the unit outside of the shower. If any bleeding or leakage is noted please call your doctor's office. This will remain on your incision for 7 days and then should be removed. This can be done yourself or by the home nursing staff if applicable. The entire unit is disposable once removed. Once removed, keep incision clean and dry. If redness or drainage is noted, please call your surgeon. . FOLLOW UP VISIT: If appointment is not already scheduled: Please call [facility] [place] to make a follow-up appointment for 2 weeks after your surgery at . Stand-Alone Forms: My [facility] [employer], Smoking Cessation Medications and DC Order Prescriptions: New acetaminophen [Tylenol Extra Strength] 500 mg Tablet 1,000 mg PO Q8 14 Days Qty: 84 0RF aspirin 81 mg Tablet,Delayed Release (Dr/Ec) 81 mg PO BID 30 Days Qty: 60 0RF oxycodone 5 mg Tablet 5 - 10 mg PO Q6H PRN (Reason: pain) Qty: 30 0RF Rx Instructions: ongoing therapy, supervising dr jad anne, max 6tabs in 24 hours cefadroxil 500 mg capsule 500 mg PO BID 14 Days Qty: 28 0RF cefadroxil 500 mg capsule 500 mg PO BID 14 Days Qty: 28 0RF oxycodone 5 mg tablet 5 - 10 mg PO Q6H PRN (Reason: pain) Qty: 30 0RF Rx Instructions: ongoing therapy, supervising dr jad anne, max 6 tabs in 24 hours Continued atorvastatin 40 mg Tablet 40 mg PO QAM sumatriptan succinate 100 mg Tablet 100 mg PO UD PRN (Reason: migraines) Rx Instructions: take 1 tab at onset of headache; if no relief, may repeat 1 tab after at least 2 hrs; max = 2 tabs/24 hrs potassium chloride 10 mEq Tablet Extended Release 10 meq PO BID levothyroxine 88 mcg Tablet 88 mcg PO QAM lansoprazole 30 mg Capsule,Delayed Release(Dr/Ec) 30 mg PO QAM hydrochlorothiazide 25 mg Tablet 25 mg PO QAM magnesium oxide 250 mg magnesium Tablet 250 mg PO QAM [id number] Tablet 1 tab PO QAM Discontinued meloxicam 15 mg Tablet 15 mg PO QAM acetaminophen [Tylenol Ex Str Rapid Release] 500 mg Tablet 500 mg PO QID PRN (Reason: Pain) Admission Data Admit Date/Time: 05/12/22 09:47 Attending Provider: Leo Anne Admit Provider: Leo Anne Primary Care Provider: Ava Chamberlain Other Providers: Idalia Hutchinson ; Jordan Ambrose ; Zaina,Home Health Other Interventions: Discharge Summary Assessment (RN) Last Done: 05/13/22 11:06
== END 2022-05-13 12:17 | disposition home health service (06) ==
LOC: 3E 05:01 → ASU 05:01